=== PATIENT | female | born 1995 ===

== ENCOUNTER 2024-09-18 10:20 | Inpatient (IN) | payer OTHER ==
[~2024-09-18] VITALS: Ht 162.6 cm; Wt 57.8 kg
[2024-09-18 11:25] LABS: ALCOHOL, URINE DRUG SCREEN NEGATIVE (NEGATIVE); AMPHET/METH SCREEN,URINE NEGATIVE (NEGATIVE); BARBITURATE SCREEN, URINE NEGATIVE (NEGATIVE); BENZODIAZEPINES SCREEN,URINE NEGATIVE (NEGATIVE); CANNABINOID SCREEN,URINE NEGATIVE (NEGATIVE); COCAINE SCREEN,URINE NEGATIVE (NEGATIVE); METHADONE SCREEN, URINE NEGATIVE (NEGATIVE); OPIATE SCREEN,URINE NEGATIVE (NEGATIVE); PHENCYCLIDINE SCREEN,URINE NEGATIVE (NEGATIVE)
[2024-09-18 16:45] VITALS: BP 123/86; PULSE 91; RESP 19; TEMP 98.6; O2SAT 100
[2024-09-18] MEDS ORDERED: ACETAMINOPHEN 325 MG TABLET PO PRN (19:15)
[2024-09-18] MEDS ORDERED: HYDROCODONE/ACETAMINOPHEN 5-325 MG TABLET PO PRN (19:15)
[2024-09-18] MEDS ORDERED: MAGNESIUM HYDROXIDE SUSPENSION 30 ML UDCUP PO PRN (19:15)
[2024-09-18] MEDS ORDERED: MORPHINE SULFATE 2 MG/ML SYRINGE IVP PRN (19:15)
[2024-09-18] MEDS ORDERED: BISACODYL 10 MG RECTAL RECTAL SUPPOSITORY PR PRN (19:15)
[2024-09-18] MEDS ORDERED: ONDANSETRON HCL 4 MG/2 ML VIAL IVP PRN (19:15)
[2024-09-18 20:17] VITALS: BP 118/92; PULSE 103; RESP 18; TEMP 98.2; O2SAT 97
[2024-09-18] MEDS: LACTULOSE 20 GM/30 ML SOLUTION UDCUP PO SCH (20:33)
[2024-09-18] MEDS: DOCUSATE SODIUM 100 MG CAPSULE PO SCH (20:33)
[2024-09-18] MEDS: ZOLPIDEM TARTRATE 5 MG TABLET PO PRN (23:48)
[2024-09-18] MEDS: HEPARIN SODIUM,PORCINE 5,000 UNITS/ML VIAL SQ SCH (23:51)
[2024-09-19 05:40] VITALS: BP 96/66; PULSE 78; RESP 18; TEMP 97.5; O2SAT 97
[2024-09-19 08:09] VITALS: BP 102/70; PULSE 93; RESP 20; TEMP 98; O2SAT 97
[2024-09-19] MEDS: PANTOPRAZOLE SODIUM 40 MG DR TABLET PO SCH (08:22)
== END 2024-09-19 18:58 | DRG 392 ==
LOC: EMS 10:39 → EDBEDREQ 13:28 → EDH 13:30 → 6S 17:38
PROVIDERS: ADMIT Internal Medicine; ATTEND Internal Medicine
DX: R10.13 Epigastric pain (principal); F15.90 Other stimulant use, unspecified, uncomplicated; K59.00 Constipation, unspecified; F11.90 Opioid use, unspecified, uncomplicated
CPT/HCPCS: 74176; 80307; 84703; 99285; J1644